=== PATIENT | male | born 1965 | race Caucasian/White ===

== ENCOUNTER 2018-12-10 08:27 | Emergency (ER) | payer BC, OTHER ==
[~2018-12-10] VITALS: Ht 172.7 cm; Wt 72.6 kg
--- NOTE | 2018-12-10 09:53 | NUR ---
Patient asleep but arousable non distress awaiting for xray result
[2018-12-10 10:27] VITALS: BP 145/56
--- NOTE | 2018-12-10 10:27 | NUR ---
Patient right leg splint done, with crutches return demonstration done, patient appreciated, d/c home instruction given, follow up with PMD, in AM
--- NOTE | 2018-12-10 10:32 | NUR ---
Patient discharged to home in stable condition. Written and verbal after care instructions given. Patient verbalizes understanding of instruction.
== END 2018-12-10 10:32 | disposition home or self-care (01) ==
LOC: ER 08:31
DX: S82.401A Unspecified fracture of shaft of right fibula, initial encounter for closed fracture (principal); S90.812A Abrasion, left foot, initial encounter; S70.311A Abrasion, right thigh, initial encounter; W22.8XXA Striking against or struck by other objects, initial encounter; Y93.02 Activity, running; Y92.89 Other specified places as the place of occurrence of the external cause; Y99.0 Civilian activity done for income or pay
CPT/HCPCS: 29505; 72170; 73564; 73590; 73630; 99283; J7030

== ENCOUNTER 2023-01-14 16:21 | Emergency (ER) | payer BC, OTHER ==
[~2023-01-14] VITALS: Ht 172.7 cm; Wt 72.6 kg
[2023-01-14] MEDS ORDERED: HYDR-3972 PO (19:08)
[2023-01-14] MEDS ORDERED: IBUP-1953 PO (19:08)
[2023-01-14 19:17] VITALS: BP 132/75; TEMP 97.8; O2SAT 100
== END 2023-01-14 19:31 | disposition home or self-care (01) ==
LOC: ER 16:27
DX: S82.61XA Displaced fracture of lateral malleolus of right fibula, initial encounter for closed fracture (principal); R51.9 Headache, unspecified; Z98.890 Other specified postprocedural states; X50.1XXA Overexertion from prolonged static or awkward postures, initial encounter; Y93.89 Activity, other specified; Y92.89 Other specified places as the place of occurrence of the external cause; Y99.8 Other external cause status
CPT/HCPCS: 70450-TC; 70486-TC; 73610-TC

== ENCOUNTER 2024-10-17 20:57 | Emergency (ER) | payer BC ==
[~2024-10-17] VITALS: Ht 172.7 cm; Wt 76.7 kg
[~2024-10-17 20:57] MED LIST: HYDR-3972 PO; IBUP-1953 PO
[2024-10-18] MEDS: IBUPROFEN 400 MG TABLET PO ONE (00:21)
[2024-10-18] MEDS ORDERED: IBUPROFEN 400 MG TABLET ONE (00:21)
[2024-10-18] MEDS ORDERED: HYDROCODONE/APAP 5/325MG TABLET ONE (01:09)
[2024-10-18] MEDS: HYDROCODONE/APAP 5/325MG TABLET PO ONE (01:09)
[2024-10-18] MEDS ORDERED: HYDR-3972 PO (02:06)
[2024-10-18 02:27] VITALS: BP 122/78; TEMP 98.5; O2SAT 97
== END 2024-10-18 02:45 | disposition home or self-care (01) ==
LOC: ER 20:59
DX: S82.842A Displaced bimalleolar fracture of left lower leg, initial encounter for closed fracture (principal); X50.1XXA Overexertion from prolonged static or awkward postures, initial encounter; Y93.89 Activity, other specified; Y92.89 Other specified places as the place of occurrence of the external cause; Y99.8 Other external cause status
CPT/HCPCS: 73610-TC; 73700-TC